=== PATIENT | male | born 1960 | race Caucasian/White ===

== ENCOUNTER 2022-08-03 23:04 | Observation (INO) | payer MEDICARE, BC ==
[2022-08-03 23:12] LABS: Glucose,Whole Blood 154 mg/dL (70-110)
[2022-08-03] MEDS ORDERED: SODIUM CHLORIDE 0.9% 1,000 ML IV STA (23:14)
[2022-08-03] MEDS ORDERED: ONDANSETRON 4 MG/2 ML VIAL IVP STA (23:14)
--- NOTE | 2022-08-03 23:18 | ED ---
Altered Mental Status HPI - General Chief Complaint: Altered Mental Status Stated Complaint: AMS Time Seen by Provider: 08/03/22 23:10 Source: EMS Mode of arrival: EMS Limitations: no limitations - History of Present Illness Initial Comments: 62-year-old male with past history of CVA and left-sided deficits to presents emergency department with "I just don't feel well". Family called EMS because they felt the patient wasn't acting himself. He was reporting to room spinning, nausea and diarrhea. He denies headache or visual changes. He does have some disrupted speech and forgetfulness however this is reported to be chronic. He does have foot drop on the left which is chronic. He takes Plavix daily and denies any missed doses. He denies any sick contacts with similar symptoms. He denies fevers, chills or cough. He denies any changes in his urination. History is somewhat abbreviated as the patient is a poor historian and family does not come to the hospital. - Related Data Home Medications Medication Instructions Recorded Confirmed Atorvastatin [Lipitor] 20 mg PO HS 08/04/22 08/04/22 Cholecalciferol [Vitamin D3 (25 50 mcg PO DAILY 08/04/22 08/04/22 Mcg = 1000 Iu)] Clopidogrel [Plavix] 75 mg PO DAILY 08/04/22 08/04/22 Cyclobenzaprine [Flexeril] 5 mg PO BID PRN 08/04/22 08/04/22 Metoprolol Tartrate [Lopressor] 25 mg PO BID 08/04/22 08/04/22 Morphine Sulfate Ir [MSIR] 30 mg PO TID PRN 08/04/22 08/04/22 Nitroglycerin Sl Tabs [Nitrostat] 0.4 mg SUBLINGUAL Q5M PRN 08/04/22 08/04/22 Tamsulosin [Flomax] 0.8 mg PO DAILY 08/04/22 08/04/22 amLODIPine [Norvasc] 10 mg PO DAILY 08/04/22 08/04/22 carBAMazepine 200 mg PO Q12H 08/04/22 08/04/22 Previous Rx's Medication Instructions Recorded Cyanocobalamin [Vitamin B-12] 1,000 mcg PO DAILY #14 tab 08/06/22 Allergies Allergy/AdvReac Type Severity Reaction Status Date / Time No Known Allergies Allergy Verified 08/04/22 12:04 Review of Systems ROS Statement: Those systems with pertinent positive or pertinent negative responses have been documented in the HPI. ROS Other: All systems not noted in ROS Statement are negative. Past Medical History Past Medical History: Chest Pain / Angina, CVA/TIA, Hyperlipidemia, Pneumonia, Prostate Disorder History of Any Multi-Drug Resistant Organisms: None Reported Past Surgical History: Cholecystectomy, Heart Catheterization Smoking Status: Current every day smoker Past Alcohol Use History: Rare Past Drug Use History: None Reported General Exam Limitations: no limitations General appearance: alert, in no apparent distress Head exam: Present: atraumatic, normocephalic, normal inspection Eye exam: Present: normal appearance, PERRL, EOMI. Absent: scleral icterus, conjunctival injection, periorbital swelling ENT exam: Present: normal exam, mucous membranes moist Neck exam: Present: normal inspection. Absent: tenderness, meningismus, lymphadenopathy Respiratory exam: Present: normal lung sounds bilaterally. Absent: respiratory distress, wheezes, rales, rhonchi, stridor Cardiovascular Exam: Present: regular rate, normal rhythm, normal heart sounds. Absent: systolic murmur, diastolic murmur, rubs, gallop, clicks GI/Abdominal exam: Present: soft, normal bowel sounds. Absent: distended, tenderness, guarding, rebound, rigid Extremities exam: Present: normal inspection, full ROM, normal capillary refill. Absent: tenderness, pedal edema, joint swelling, calf tenderness Back exam: Present: normal inspection Neurological exam: Present: alert, CN II-XII intact Psychiatric exam: Present: normal mood, flat affect Skin exam: Present: warm, dry, intact, normal color. Absent: rash Course Vital Signs 08/03/22 08/04/22 08/04/22 23:06 00:22 03:30 Temperature 98.3 F Pulse Rate 80 75 Respiratory 16 16 Rate Blood Pressure 108/82 100/83 108/75 O2 Sat by Pulse 95 95 Oximetry 08/04/22 08/04/22 05:31 06:46 Temperature 98.4 F Pulse Rate 74 72 Respiratory 16 16 Rate Blood Pressure 130/92 124/84 O2 Sat by Pulse 98 95 Oximetry Medical Decision Making - Medical Decision Making Was pt. sent in by a medical professional or institution (, PA, DIRECTOR FEDERAL, urgent care, hospital, or penitentiary...) When possible be specific @ -No Did you speak to anyone other than the patient for history (EMS, parent, family, police, friend...)? What history was obtained from this source @ -EMS Did you review nursing and triage notes (agree or disagree)? Why? @ -I reviewed and agree with nursing and triage notes Were old charts reviewed (outside hosp., previous admission, EMS record, old EKG, old radiological studies, urgent care reports/EKG's, penitentiary records)? Report findings @ - old charts were reviewed Differential Diagnosis (chest pain, altered mental status, abdominal pain women, abdominal pain men, vaginal bleeding, weakness, fever, dyspnea, syncope, headache, dizziness, GI bleed, back pain, seizure, CVA, palpatations, mental health, musculoskeletal)? @ sepsis, uti, pneumonia, SAH, SDH, CVA, electrolyte abnormality EKG interpreted by me (3pts min.). @ -As above X-rays interpreted by me (1pt min.). @ -yes CT interpreted by me (1pt min.). @ -yes U/S interpreted by me (1pt. min.). @ -None done What testing was considered but not performed or refused? (CT, X-rays, U/S, labs)? Why? @ -None What meds were considered but not given or refused? Why? @ -None Did you discuss the management of the patient with other professionals (professionals i.e. , PA, DIRECTOR FEDERAL, lab, RT, psych nurse, social work program coordinator, control clerk repairs, teacher, special weapons unit officer, case planner)? Give summary @ -Admitting physician Was smoking cessation discussed for >3mins.? @ -no Was critical care preformed (if so, how long)? @ -no Were there social determinants of health that impacted care today? How? (Homelessness, low income, unemployed, alcoholism, drug addiction, transportation, low edu. Level, literacy, decrease access to med. care, halfway, rehab)? @ -No Was there de-escalation of care discussed even if they declined (Discuss DNR or withdrawal of care, Hospice)? DNR status @ -No What co-morbidities impacted this encounter? (DM, HTN, Smoking, COPD, CAD, Ca ncer, CVA, ARF, Chemo, Hep., AIDS, mental health diagnosis, sleep apnea, morbid obesity)? @ -CVA Was patient admitted / discharged? Hospital course, mention meds given and route, prescriptions, significant lab abnormalities, going to OR and other pertinent info. @ -Upon arrival the patient is placed into room 9. A thorough history and phys ical exam was performed. Patient does score a 1 on the NIH scale due to mild aphasia. He does have equal psychiatric technician strength bilaterally. Is able to hold up both lower extremities for 5 seconds without drift. He is able to provide moderate history. Laboratory studies were conducted which demonstrated a sodium of 128. Potassium 2.9. Potassium is replaced. Patient also started on intravenous fluids. CT of his head is performed due to his strong history of CVA. Reports demonstrates postsurgical changes in the right frontal lobe without evidence for acute or subacute CVA. This is discussed with the patient. Mentation is stable upon saline emergency room. Did recommend admission for electrolyte abnormality for which the patient was agreeable. He is admitted to [facility]. He is currently awaiting a bed on the floor in stable condition Undiagnosed new problem with uncertain prognosis? @ -yes Drug Therapy requiring intensive monitoring for toxicity (Heparin, Nitro, Insulin, Cardizem)? @ -No Were any procedures done? @ -No Diagnosis/symptom? @ -acute encephalopathy, acute hyponatremia Acute, or Chronic, or Acute on Chronic? @ -acute Uncomplicated (without systemic symptoms) or Complicated (systemic symptoms)? @ -complicated Side effects of treatment? @ -no Exacerbation, Progression, or Severe Exacerbation? @ -no Poses a threat to life or bodily function? How? (Chest pain, [place], [place], pneumonia, PE, COPD, DKA, ARF, appy, cholecystitis, CVA, Diverticulitis, Homicidal, Suicidal, threat to staff... and all critical care pts) @ -no - Lab Data Result diagrams: 08/05/22 05:09 08/05/22 05:09 Lab Results 08/03/22 08/03/22 08/03/22 Range/Units 23:10 23:19 23:19 WBC 8.4 (3.8-10.6) k/uL RBC 4.61 (4.30-5.90) m/uL Hgb 14.7 (13.0-17.5) gm/dL Hct 41.7 (39.0-53.0) % MCV 90.5 (80.0-100.0) fL MCH 31.8 (25.0-35.0) pg MCHC 35.1 (31.0-37.0) g/dL RDW 11.6 (11.5-15.5) % Plt Count 205 (150-450) k/uL MPV 7.3 Neutrophils % 57 % Lymphocytes % 35 % Monocytes % 5 % Eosinophils % 2 % Basophils % 1 % Neutrophils # 4.8 (1.3-7.7) k/uL Lymphocytes # 2.9 (1.0-4.8) k/uL Monocytes # 0.4 (0-1.0) k/uL Eosinophils # 0.1 (0-0.7) k/uL Basophils # 0.1 (0-0.2) k/uL PT 10.9 (9.0-12.0) sec INR 1.0 (<1.2) Sodium (137-145) mmol/L Potassium (3.5-5.1) mmol/L Chloride (98-107) mmol/L Carbon Dioxide (22-30) mmol/L Anion Gap mmol/L BUN (9-20) mg/dL Creatinine (0.66-1.25) mg/dL Est GFR (CKD-EPI)AfAm (>60 ml/min/1.73 sqM) Est GFR (CKD-EPI)NonAf (>60 ml/min/1.73 sqM) Glucose (74-99) mg/dL POC Glucose (mg/dL) 154 H (70-110) mg/dL POC Glu Transportation Clerk ID Myriam Fraire Lactic Ac Sepsis Rflx Plasma Lactic Acid Cm (0.7-2.0) mmol/L Calcium (8.4-10.2) mg/dL Total Bilirubin (0.2-1.3) mg/dL AST (17-59) U/L ALT (4-49) U/L Alkaline Phosphatase (38-126) U/L Troponin I (0.000-0.034) ng/mL Total Protein (6.3-8.2) g/dL Albumin (3.5-5.0) g/dL Urine Color Urine Appearance (Clear) Urine pH (5.0-8.0) Ur Specific [place] (1.001-1.035) Urine Protein (Negative) Urine Glucose (UA) (Negative) Urine Ketones (Negative) Urine Blood (Negative) Urine Nitrite (Negative) Urine Bilirubin (Negative) Urine Urobilinogen (<2.0) mg/dL Ur Leukocyte Esterase (Negative) 08/03/22 08/03/22 08/03/22 Range/Units 23:19 23:19 23:19 WBC (3.8-10.6) k/uL RBC (4.30-5.90) m/uL Hgb (13.0-17.5) gm/dL Hct (39.0-53.0) % MCV (80.0-100.0) fL MCH (25.0-35.0) pg MCHC (31.0-37.0) g/dL RDW (11.5-15.5) % Plt Count (150-450) k/uL MPV Neutrophils % % Lymphocytes % % Monocytes % % Eosinophils % % Basophils % % Neutrophils # (1.3-7.7) k/uL Lymphocytes # (1.0-4.8) k/uL Monocytes # (0-1.0) k/uL Eosinophils # (0-0.7) k/uL Basophils # (0-0.2) k/uL PT (9.0-12.0) sec INR (<1.2) Sodium 128 L (137-145) mmol/L Potassium 2.9 L (3.5-5.1) mmol/L Chloride 90 L (98-107) mmol/L Carbon Dioxide 30 (22-30) mmol/L Anion Gap 8 mmol/L BUN 3 L (9-20) mg/dL Creatinine 0.72 (0.66-1.25) mg/dL Est GFR (CKD-EPI)AfAm >90 (>60 ml/min/1.73 sqM) Est GFR (CKD-EPI)NonAf >90 (>60 ml/min/1.73 sqM) Glucose 136 H (74-99) mg/dL POC Glucose (mg/dL) (70-110) mg/dL POC Glu Transportation Clerk ID Lactic Ac Sepsis Rflx Plasma Lactic Acid Cm 2.7 H* (0.7-2.0) mmol/L Calcium 9.6 (8.4-10.2) mg/dL Total Bilirubin 0.6 (0.2-1.3) mg/dL AST 29 (17-59) U/L ALT 34 (4-49) U/L Alkaline Phosphatase 97 (38-126) U/L Troponin I <0.012 (0.000-0.034) ng/mL Total Protein 7.4 (6.3-8.2) g/dL Albumin 4.8 (3.5-5.0) g/dL Urine Color Urine Appearance (Clear) Urine pH (5.0-8.0) Ur Specific [place] (1.001-1.035) Urine Protein (Negative) Urine Glucose (UA) (Negative) Urine Ketones (Negative) Urine Blood (Negative) Urine Nitrite (Negative) Urine Bilirubin (Negative) Urine Urobilinogen (<2.0) mg/dL Ur Leukocyte Esterase (Negative) 08/03/22 08/04/22 Range/Units 23:48 02:05 WBC (3.8-10.6) k/uL RBC (4.30-5.90) m/uL Hgb (13.0-17.5) gm/dL Hct (39.0-53.0) % MCV (80.0-100.0) fL MCH (25.0-35.0) pg MCHC (31.0-37.0) g/dL RDW (11.5-15.5) % Plt Count (150-450) k/uL MPV Neutrophils % % Lymphocytes % % Monocytes % % Eosinophils % % Basophils % % Neutrophils # (1.3-7.7) k/uL Lymphocytes # (1.0-4.8) k/uL Monocytes # (0-1.0) k/uL Eosinophils # (0-0.7) k/uL Basophils # (0-0.2) k/uL PT (9.0-12.0) sec INR (<1.2) Sodium (137-145) mmol/L Potassium (3.5-5.1) mmol/L Chloride (98-107) mmol/L Carbon Dioxide (22-30) mmol/L Anion Gap mmol/L BUN (9-20) mg/dL Creatinine (0.66-1.25) mg/dL Est GFR (CKD-EPI)AfAm (>60 ml/min/1.73 sqM) Est GFR (CKD-EPI)NonAf (>60 ml/min/1.73 sqM) Glucose (74-99) mg/dL POC Glucose (mg/dL) (70-110) mg/dL POC Glu Transportation Clerk ID Lactic Ac Sepsis Rflx Y Plasma Lactic Acid Cm (0.7-2.0) mmol/L Calcium (8.4-10.2) mg/dL Total Bilirubin (0.2-1.3) mg/dL AST (17-59) U/L ALT (4-49) U/L Alkaline Phosphatase (38-126) U/L Troponin I (0.000-0.034) ng/mL Total Protein (6.3-8.2) g/dL Albumin (3.5-5.0) g/dL Urine Color Yellow Urine Appearance Clear (Clear) Urine pH 7.5 (5.0-8.0) Ur Specific [place] 1.005 (1.001-1.035) Urine Protein Negative (Negative) Urine Glucose (UA) Negative (Negative) Urine Ketones Negative (Negative) Urine Blood Negative (Negative) Urine Nitrite Negative (Negative) Urine Bilirubin Negative (Negative) Urine Urobilinogen <2.0 (<2.0) mg/dL Ur Leukocyte Esterase Negative (Negative) - EKG Data EKG Comments: EKG demonstrates sinus rhythm with a rate of 76.. Vital to swell. QRS 104. QTC of 394. Inverted T wave in V3. No acute ST segment elevations concerning for infarction. Disposition Clinical Impression: Acute encephalopathy, Dehydration, Hyponatremia, Hx of arterial ischemic stroke, Hypokalemia Disposition: ADMITTED IP TO THIS HOSP Condition: Fair Is patient prescribed a controlled substance at d/c from ED?: No Time of Disposition: 02:59 Decision to Admit Reason: Admit from EC Decision Date: 08/04/22 Decision Time: 02:59
[2022-08-03 23:31] LABS: Basophils # (A) 0.1 k/uL (0-0.2); Basophils % (A) 1 %; Eosinophils # (A) 0.1 k/uL (0-0.7); Eosinophils % (A) 2 %; HCT 41.7 % (39.0-53.0); HGB 14.7 gm/dL (13.0-17.5); Lymphocytes # (A) 2.9 k/uL (1.0-4.8); Lymphocytes % (A) 35 %; MCH 31.8 pg (25.0-35.0); MCHC 35.1 g/dL (31.0-37.0); MCV 90.5 fL (80.0-100.0); Mean Platelet Volume 7.3; Monocytes # (A) 0.4 k/uL (0-1.0); Monocytes % (A) 5 %; Neutrophils # (A) 4.8 k/uL (1.3-7.7); Neutrophils % (A) 57 %; Platelet Count 205 k/uL (150-450); RBC 4.61 m/uL (4.30-5.90); RDW 11.6 % (11.5-15.5); WBC 8.4 k/uL (3.8-10.6)
--- NOTE | 2022-08-03 23:40 | XR ---
EXAMINATION TYPE: XR chest 2V DATE OF EXAM: 08/03/2022 11:31 PM COMPARISON: None TECHNIQUE: XR chest 2V Frontal and lateral views of the chest. CLINICAL INDICATION:Male, 62 years old with history of dizzy; FINDINGS: Lungs/Pleura: There is no evidence of pleural effusion, focal consolidation, or pneumothorax. Pulmonary vascularity: Unremarkable. Heart/mediastinum: Cardiomediastinal silhouette is unremarkable. A loop recorder projects over the le ft thorax over the heart. Musculoskeletal: No acute osseous pathology. IMPRESSION: No acute cardiopulmonary disease/process.
[2022-08-03 23:41] LABS: ALT 34 U/L (4-49); AST 29 U/L (17-59); African American GFR (CKD) >90 (>60 ml/min/1.73 sqM); Albumin 4.8 g/dL (3.5-5.0); Alkaline Phosphatase 97 U/L (38-126); Anion Gap 8 mmol/L; Blood Urea Nitrogen 3 mg/dL (9-20); Calcium 9.6 mg/dL (8.4-10.2); Carbon Dioxide 30 mmol/L (22-30); Chloride 90 mmol/L (98-107); Glucose 136 mg/dL (74-99); Non-African American GFR(CKD) >90 (>60 ml/min/1.73 sqM); Potassium 2.9 mmol/L (3.5-5.1); Sodium 128 mmol/L (137-145); Total Bilirubin 0.6 mg/dL (0.2-1.3); Total Protein 7.4 g/dL (6.3-8.2)
[2022-08-03 23:44] LABS: Prothrombin Time 10.9 sec (9.0-12.0)
--- NOTE | 2022-08-03 23:51 | CT ---
EXAMINATION TYPE: CT brain wo con CT DLP: 1154.6 mGycm, Automated exposure control for dose reduction was used. DATE OF EXAM: 08/03/2022 11:38 PM COMPARISON: 12/21/2010 MRI. CLINICAL INDICATION:Male, 62 years old with history of headache, dizzy, hx brain ca, hx cva, dizzines s TECHNIQUE: Brain: Axial CT images of the brain were obtained with coronal and sagittal reformats created and rev iewed. Contrast used: None. Oral contrast used: None. FINDINGS: Brain: Extra-axial spaces: No abnormal extra-axial fluid collections. Ventricular system: Within normal limits Cerebral parenchyma: Post surgical changes the right frontal lobe and skull. Focal malacia changes. T here remains encephalomalacia and white matter changes in the right frontal lobe. There is loss of gr ay-white junction in the area of surgical resection. Cystic structure as seen on prior MRI remains wi th similar size compared to 2011. No acute intraparenchymal hemorrhage or mass effect. Cerebellum: Unremarkable. Mass effect: No evidence of midline shift. Intracranial vasculature: Atherosclerotic calcifications of the intracranial vessels. Soft tissues: Normal. Calvarium/osseous structures: No depressed skull fracture. Craniotomy changes to the skull in the fro ntal aspect on the right. Paranasal sinuses and mastoid air cells: Mild scattered paranasal sinus disease. Visualized orbits: Orbital contents are intact. IMPRESSION: Postsurgical changes of the right frontal lobe without evidence for acute/subacute CVA. Evaluation fo r recurrence is limited without contrast and with CT technique.
[2022-08-04 02:30] LABS: Appearance,Urine Clear (Clear); Bilirubin,Urine Negative (Negative); Blood,Urine Negative (Negative); Color,Urine Yellow; Glucose,Urine (UA) Negative (Negative); Ketones,Urine Negative (Negative); Leukocyte Esterase,Urine Negative (Negative); Nitrite,Urine Negative (Negative); PH, Urine 7.5 (5.0-8.0); Protein,Urine Negative (Negative); Specific Gravity,Urine 1.005 (1.001-1.035); Urobilinogen,Urine <2.0 mg/dL (<2.0)
[2022-08-04] MEDS ORDERED: NALOXONE 0.4 MG/ML 1 ML VIAL IV PRN (02:59)
[2022-08-04] MEDS ORDERED: POTASSIUM CHLORIDE ER 20 MEQ TAB.ER PO STA (03:18)
[2022-08-04] MEDS: SODIUM CHLORIDE 0.9% 1,000 ML IV SCH ×3 (03:19→17:45)
[2022-08-04] MEDS ORDERED: POTASSIUM CHLORIDE 20 MEQ in WATER FOR INJECTION 1 100ML.BAG IVPB ONE (03:30)
[2022-08-04] MEDS ORDERED: NITROGLYCERIN SL TABS 0.4 MG TAB SUBLINGUAL PRN (13:54)
[2022-08-04] MEDS ORDERED: CYCLOBENZAPRINE 5 MG TAB PO PRN (13:54)
[2022-08-04] MEDS: CLOPIDOGREL 75 MG TAB PO SCH (14:43)
[2022-08-04] MEDS: NICOTINE 14MG/24HR PATCH TRANSDERM SCH (14:43)
[2022-08-04] MEDS: carBAMazepine 200 MG TAB PO SCH ×2 (14:43→19:54)
[2022-08-04 15:10] LABS: African American GFR (CKD) >90 (>60 ml/min/1.73 sqM); Anion Gap 9 mmol/L; Blood Urea Nitrogen 4 mg/dL (9-20); Calcium 9.4 mg/dL (8.4-10.2); Carbon Dioxide 25 mmol/L (22-30); Chloride 99 mmol/L (98-107); Glucose 117 mg/dL (74-99); Non-African American GFR(CKD) >90 (>60 ml/min/1.73 sqM); Potassium 3.8 mmol/L (3.5-5.1); Sodium 133 mmol/L (137-145)
--- NOTE | 2022-08-04 17:39 | P.HPIM ---
History of Present Illness H&P Date: 08/04/22 Chief Complaint: Altered mental status 62-year-old male with past history of CVA and left-sided deficits to presents emergency department with "I just don't feel well". Family called EMS because they felt the patient wasn't acting himself. He was reporting to room spinning, nausea and diarrhea. He denies headache or visual changes. He does have some disrupted speech and forgetfulness however this is reported to be chronic. He does have foot drop on the left which is chronic. He takes Plavix daily and denies any missed doses. He denies any sick contacts with similar symptoms. He denies fevers, chills or cough. He denies any changes in his urination. History is somewhat abbreviated as the patient is a poor historian and family does not come to the hospital. Evaluation in ED revealed score a 1 on the NIH scale due to mild a facia. He does have equal senior linux administrator strength bilaterally. Is able to hold up both lower extremities for 5 seconds without drift. He is able to provide moderate history. Laboratory studies were conducted which demonstrated a sodium of 128. Potassium 2.9. Potassium is replaced. Patient also started on intravenous fluids. CT of his head is performed due to his strong history of CVA. Reports demonstrates postsurgical changes in the right frontal lobe without evidence for acute or subacute CVA. Mentation is stable upon saline administration emergency room. Patient is admitted to address electrolyte imbalance Review of Systems REVIEW OF SYSTEMS: CONSTITUTIONAL: No fever, no malaise, no fatigue. HEENT: No recent visual problems or hearing problems. Denied any sore throat. CARDIOVASCULAR: No chest pain, orthopnea, PND, no palpitations, no syncope. PULMONARY: No shortness of breath, no cough, no hemoptysis. GASTROINTESTINAL: No diarrhea, no nausea, no vomiting, no abdominal pain. NEUROLOGICAL: No headaches, no weakness, no numbness. HEMATOLOGICAL: Denies any bleeding or petechiae. GENITOURINARY: Denies any burning micturition, frequency, or urgency. MUSCULOSKELETAL/RHEUMATOLOGICAL: Denies any joint pain, swelling, or any muscle pain. ENDOCRINE: Denies any polyuria or polydipsia. The rest of the 14-point review of systems is negative. Past Medical History Past Medical History: Chest Pain / Angina, CVA/TIA, Hyperlipidemia, Pneumonia, Prostate Disorder History of Any Multi-Drug Resistant Organisms: None Reported Past Surgical History: Cholecystectomy, Heart Catheterization Additional Past Surgical History / Comment(s): [employer] Heart Monitor Smoking Status: Current every day smoker Past Alcohol Use History: Rare Past Drug Use History: None Reported Medications and Allergies Home Medications Medication Instructions Recorded Confirmed Type Atorvastatin [Lipitor] 20 mg PO HS 08/04/22 08/04/22 History Cholecalciferol [Vitamin D3 (25 50 mcg PO DAILY 08/04/22 08/04/22 History Mcg = 1000 Iu)] Clopidogrel [Plavix] 75 mg PO DAILY 08/04/22 08/04/22 History Cyclobenzaprine [Flexeril] 5 mg PO BID PRN 08/04/22 08/04/22 History Metoprolol Tartrate [Lopressor] 25 mg PO BID 08/04/22 08/04/22 History Morphine Sulfate Ir [MSIR] 30 mg PO TID PRN 08/04/22 08/04/22 History Nitroglycerin Sl Tabs [Nitrostat] 0.4 mg SUBLINGUAL Q5M PRN 08/04/22 08/04/22 History Tamsulosin [Flomax] 0.8 mg PO DAILY 08/04/22 08/04/22 History amLODIPine [Norvasc] 10 mg PO DAILY 08/04/22 08/04/22 History carBAMazepine 200 mg PO Q12H 08/04/22 08/04/22 History hydroCHLOROthiazide [Hydrodiuril] 25 mg PO DAILY 08/04/22 08/04/22 History Allergies Allergy/AdvReac Type Severity Reaction Status Date / Time No Known Allergies Allergy Verified 08/04/22 12:04 Physical Exam Vitals: Vital Signs Temp Pulse Pulse Resp BP BP Pulse Ox 08/04/22 08:00 97.7 F 72 15 106/79 95 08/04/22 06:46 72 16 124/84 95 08/04/22 05:31 98.4 F 74 16 130/92 98 08/04/22 03:30 108/75 08/04/22 00:22 75 16 100/83 95 08/03/22 23:06 98.3 F 80 16 108/82 95 Intake and Output 08/03/22 08/04/22 08/04/22 22:59 06:59 14:59 Intake Total 236 Balance 236 Intake: Oral 236 Other: Voiding Method Urinal Weight 77.111 kg PHYSICAL EXAMINATION: GENERAL: The patient is alert and oriented x3, not in any acute distress. Well developed, well nourished. HEENT: Pupils are round and equally reacting to light. EOMI. No scleral icterus. No conjunctival pallor. Normocephalic, atraumatic. No pharyngeal erythema. No thyromegaly. CARDIOVASCULAR: S1 and S2 present. No murmurs, rubs, or gallops. PULMONARY: Chest is clear to auscultation, no wheezing or crackles. ABDOMEN: Soft, nontender, nondistended, normoactive bowel sounds. No palpable organomegaly. MUSCULOSKELETAL: No joint swelling or deformity. EXTREMITIES: No cyanosis, clubbing, or pedal edema. NEUROLOGICAL: Gross neurological examination did not reveal any focal deficits. SKIN: No rashes. Results CBC & Chem 7: 08/03/22 23:19 08/04/22 14:37 Labs: Abnormal Lab Results - Last 24 Hours (Table) 08/03/22 08/03/22 08/03/22 Range/Units 23:10 23:19 23:19 Sodium 128 L (137-145) mmol/L Potassium 2.9 L (3.5-5.1) mmol/L Chloride 90 L (98-107) mmol/L BUN 3 L (9-20) mg/dL Glucose 136 H (74-99) mg/dL POC Glucose (mg/dL) 154 H (70-110) mg/dL Plasma Lactic Acid Cm 2.7 H* (0.7-2.0) mmol/L Assessment and Plan Assessment: 1. Altered mental status; likely toxic metabolic encephalopathy related to electrolyte imbalance and dehydration 2. Electrolyte imbalance; hyponatremia/hypokalemia; initial sodium was found to be 128 with potassium of 2.90; patient has received fluid bolus in ED and remains on normal saline at a rate of 135 mL an hour; we will order stat repeat electrolytes and make recommendations accordingly 3. Lactic acidosis; lactic acid was found to be evaluated upon initial evaluation at 2.7 -- no signs of infection; likely related to dehydration --Patient received IV fluid bolus in ED; repeat lactic acid level is down to 1.7 4. Hypertension; blood pressure remained soft; patient takes amlodipine 10 mg daily, hydrochlorothiazide 25 mg daily and metoprolol 25 mg twice a day; we will hold off on antihypertensive therapy to blood pressure improves 5. Hyperlipidemia; Lipitor 40 mg 2 daily at bedtime 6. BPH; continue with home dose of Flomax DVT prophylaxis; SCDs CODE STATUS; full code
[2022-08-04] MEDS: ATORVASTATIN 20 MG TAB PO SCH (19:54)
[2022-08-05] MEDS: SODIUM CHLORIDE 0.9% 1,000 ML IV SCH ×4 (02:23→22:11)
[2022-08-05] MEDS: CHOLECALCIFEROL 25 MCG (1000 IU) TABLET PO SCH (08:02)
[2022-08-05] MEDS: carBAMazepine 200 MG TAB PO SCH ×2 (08:02→21:57)
[2022-08-05] MEDS: CLOPIDOGREL 75 MG TAB PO SCH (08:02)
[2022-08-05] MEDS: MORPHINE SULFATE IR 15 MG TABLET PO PRN ×2 (08:02→17:59)
[2022-08-05] MEDS: TAMSULOSIN 0.4 MG CAP.ER.24H PO SCH (08:02)
[2022-08-05] MEDS: NICOTINE 14MG/24HR PATCH TRANSDERM SCH (08:03)
[2022-08-05 08:51] LABS: Basophils # (A) 0.05 X 10*3/uL (0.00-0.10); Basophils % (A) 0.5 %; Eosinophils # (A) 0.05 X 10*3/uL (0.04-0.35); Eosinophils % (A) 0.5 %; HCT 41.2 % (39.6-50.0); HGB 13.7 g/dL (13.0-17.0); Immature Grans, Automated 0.2 %; Lymphocytes # (A) 2.48 X 10*3/uL (0.90-5.00); Lymphocytes % (A) 26.5 %; MCH 30.6 pg (27.0-32.0); MCHC 33.3 g/dL (32.0-37.0); Mean Platelet Volume 9.7 fL (9.5-12.2); Monocytes # (A) 0.67 X 10*3/uL (0.20-1.00); Monocytes % (A) 7.2 %; NRBC Per 100 WBC 0 /100 WBCS (0.0-0.0); Neutrophils # (A) 6.08 X 10*3/uL (1.80-7.70); Neutrophils % (A) 65.1 %; Platelet Count 177 X 10*3/uL (140-440); RBC 4.48 X 10*6/uL (4.40-5.60); RDW 11.9 % (11.5-14.5); WBC 9.35 X 10*3/uL (4.50-10.00)
[2022-08-05 09:28] LABS: African American GFR (CKD) 124.9 (60.0-200.0); Anion Gap 10.2 mmol/L (10.00-18.00); BUN/Creat Ratio 6.33 Ratio (12.00-20.00); Blood Urea Nitrogen 3.8 mg/dL (9.0-27.0); Calcium 9.5 mg/dL (8.7-10.3); Carbon Dioxide 24.8 mmol/L (20.0-27.5); Non-African American GFR(CKD) 107.8 (60.0-200.0); Potassium 3.7 mmol/L (3.5-5.5)
--- NOTE | 2022-08-05 17:21 | P.PN ---
Subjective Progress Note Date: 08/05/22 62-year-old male with past history of CVA and left-sided deficits to presents emergency department with "I just don't feel well". Family called EMS because they felt the patient wasn't acting himself. He was reporting to room spinning, nausea and diarrhea. He denies headache or visual changes. He does have some disrupted speech and forgetfulness however this is reported to be chronic. He does have foot drop on the left which is chronic. He takes Plavix daily and denies any missed doses. He denies any sick contacts with similar symptoms. He denies fevers, chills or cough. He denies any changes in his urination. History is somewhat abbreviated as the patient is a poor historian and family does not come to the hospital. Evaluation in ED revealed score a 1 on the NIH scale due to mild a facia. He does have equal shop manager strength bilaterally. Is able to hold up both lower extremities for 5 seconds without drift. He is able to provide moderate history. Laboratory studies were conducted which demonstrated a sodium of 128. Potassium 2.9. Potassium is replaced. Patient also started on intravenous fluids. CT of his head is performed due to his strong history of CVA. Reports demonstrates postsurgical changes in the right frontal lobe without evidence for acute or subacute CVA. Mentation is stable upon saline administration emergency room. Patient is admitted to address electrolyte imbalance 08/05/2022 Patient evaluated today at bedside. Continues to have symptoms of left sided facial droop. He does report feeling like he is having a hard time finding words this is new. He has residual left sided weakness from prior stroke. He does report improvement in dizziness and lightheadedness. Requesting neurology evaluation. PT/OT. Review of Systems Constitutional: Denied any fatigue denied any fever. Cardio vascular: denied any chest pain, palpitations Gastrointestinal: denied any nausea, vomiting, diarrhea Pulmonary: Denied any shortness of breath cough Neurologic Reports weakness and hard time finding words. All inpatient medications were reviewed and appropriate changes in these medications as dictated in the interval history and assessment and plan. PHYSICAL EXAMINATION: GENERAL: The patient is alert and oriented x3, not in any acute distress. Well developed, well nourished. HEENT: Pupils are round and equally reacting to light. EOMI. No scleral icterus. No conjunctival pallor. Normocephalic, atraumatic. No pharyngeal erythema. No thyromegaly. CARDIOVASCULAR: S1 and S2 present. No murmurs, rubs, or gallops. PULMONARY: Chest is clear to auscultation, no wheezing or crackles. ABDOMEN: Soft, nontender, nondistended, normoactive bowel sounds. No palpable organomegaly. MUSCULOSKELETAL: No joint swelling or deformity. EXTREMITIES: No cyanosis, clubbing, or pedal edema. Dragging his left foot while ambulating. NEUROLOGICAL: Left facial droop, aphasia SKIN: No rashes. Assessment and Plan Assessment Altered mental status; likely toxic metabolic encephalopathy related to electrolyte imbalance and dehydration Hyponatremia has resolved Lactic acidosis from dehydration resolved Hypertension medications on hold currently normotensive Hyperlipidemia BPH History of stroke with left sided deficits BPH History of brain tumor and surgery in 2004 Nicotine dependence 1/2 pack per day smoker GI prophylaxis DVT prophylaxis Full Code Plan Continue current medications PT/OT/Speech therapy consultation Neurology consultation for further recommendations D/C in the next 24 hours The impression and plan of care has been dictated by Gabriela Dinh, Nurse Practitioner as directed. Dr. Nicholas MD I have performed a history and physical examination and medical decision making of this patient, discussed the same with the dictator, and agree with the dictators assessment and plan as written, documented as a scribe. Based on total visit time, I have performed more than 50% of this visit. Objective - Vital Signs Vital signs: Vital Signs Temp 98.2 F 08/05/22 15:00 Pulse 84 08/05/22 15:00 Resp 18 08/05/22 15:00 BP 131/87 08/05/22 15:00 Pulse Ox 97 08/05/22 15:00 FiO2 Intake & Output 08/04/22 08/05/22 08/05/22 18:59 06:59 18:59 Intake Total 236 236 Output Total 400 600 Balance -164 -600 236 Weight 77.111 kg Intake: Oral 236 236 Output: Urine 400 600 Other: Voiding Method Urinal Urinal # Voids 1 1 # Bowel Movements 1 - Labs CBC & Chem 7: 08/05/22 05:09 08/05/22 05:09 Labs: Abnormal Lab Results - Last 24 Hours (Table) 08/05/22 Range/Units 05:09 BUN 3.8 L (9.0-27.0) mg/dL BUN/Creatinine Ratio 6.33 L (12.00-20.00) Ratio Assessment and Plan Time with Patient: Less than 30
--- NOTE | 2022-08-05 20:51 | US ---
EXAMINATION TYPE: US carotid duplex BILAT DATE OF EXAM: 08/05/2022 COMPARISON: NONE CLINICAL HISTORY: Stroke vs TIA. Stroke vs tia TECHNIQUE: Carotid duplex ultrasound examination. Indirect Doppler criteria was utilized. FINDINGS: EXAM MEASUREMENTS: RIGHT: Peak Systolic Velocity (PSV) cm/sec ----- Right CCA: 40.6 ----- Right ICA: 54.8 ----- Right ECA: 75.8 ICA/CCA ratio: 1.4 RIGHT: End Diastole cm/sec ----- Right CCA: 19.7 ----- Right ICA: 15.3 ----- Right ECA: 22.5 LEFT: Peak Systolic Velocity (PSV) cm/sec ----- Left CCA: 61.4 ----- Left ICA: 102.3 ----- Left ECA: 71.3 ICA/CCA ratio: 1.7 LEFT: End Diastole cm/sec ----- Left CCA: 24.1 ----- Left ICA: 53.0 ----- Left ECA: 26.3 VERTEBRALS (direction of flow): Right Vertebral: Antegrade Left Vertebral: Antegrade Rhythm: Normal EXCHANGE CLERK NOTES: Mild amount of plaque visualized in bilateral bulbs IMPRESSION: Less than 50% stenosis of bilateral carotid bifurcations. Criteria for Assigning % of Stenosis / Diameter reduction (Estimation based on the indirect measurements of the internal carotid artery velocities (ICA PSV). 1. Normal (no stenosis)=ICA PSV < 125 cm/s: ratio < 2.0: ICA EDV<40 cm/s. 2. Less than 50% stenosis=ICA PSV < 125 cm/s: ratio < 2.0: ICA EDV<40 cm/s. 3. 50 to 69% stenosis=ICA PSV of 125 to 230 cm/s: ration 2.0 ? 4.0: ICA EDV 40-100 cm/s. 4. Greater than 70% stenosis to near occlusion= ICA PSV > 230 cm/s: ratio > 4.0: ICA EDV > 100 cm/s. 5. Near occlusion= ICA PSV velocities may be low or undetectable: variable ratio and ICA EDV. 6. Total occlusion=unable to detect flow.
[2022-08-05] MEDS: ATORVASTATIN 20 MG TAB PO SCH (21:57)
[2022-08-06 03:29] VITALS: RESP 18
--- NOTE | 2022-08-06 08:51 | P.CNNES ---
History of Present Illness Consult date: 08/05/22 Requesting physician: Gabriela Dinh Reason for Consult: vertigo, hx of cva History of Present Illness: Patient is a 62-year-old ambidextrous male with history of brain tumor, also has history of CVA came to the hospital by ambulance on 08/03/2022 at 11:04 PM because for the past 3 days he was feeling he was having "signs of stroke". His left side of the face was droopy and his left side of the body inc luding face arm and leg was feeling numb. He also has some dizziness and he could not stand up. He denied any obvious vertigo. His called the ambulance. Patient states that his symptoms have improved, but not completely resolved back to baseline yet. He admits to having significant urgency, leaking of urine all the time. As per EMS flow sheet, when they arrived, patient was sitting at the edge of the bed and his was present. Patient was conscious, alert and breathing normally. Patient was alert and oriented 4 and able to answer all questions appropriately. It was mentioned that patient has history of a CVA with long- term deficits to the left side. He has some left facial droop, abnormal gait due to the left leg deficit, slurred speech and memory issues. [place] str jumana scale performed and per patient and , states that there are no new acute changes from his long-term deficits from his previous stroke. EKG showed sinus rhythm.patient vitals at the scene was blood pressure 105/72, pulse rate 80, respirations 16, saturation 97% and blood sugar 155. Patient's blood test shows normal CBC, INR. Sodium was 128 potassium 2.9, normal renal and hepatic panel. Lactate was elevated 2.7. Troponin negative. UA negative. CT head revealed postsurgical changes of the right frontal lobe without evidence for acute/subacute CVA. Evaluation for recurrence is limited without contrast and with CT technique. I personally reviewed CT head, and there is evidence of old encephalomalacia left frontal region with cystic encephalomalacia in the deep right frontal subcortical region related to previous craniotomy/brain tumor/CVA. No acute process. No changes compared to MRI from 12/21/2010. Slight ex vacuo dilation of the frontal horn of the right lateral ventricle. Chest x-ray was normal, EKG showed sinus rhythm with first-degree AV block. Patient states he has history of a brain tumor diagnosed in 2003. He states that he got on a trial medication and he has been in remission since then. He has history of seizure when he was diagnosed with brain tumor, and started on carbamazepine. Patient states that he has not had any seizures since then. He subsequently had a stroke in 2015, which affected his left side of the body. Patient has smoked 2 packs per day for 40 years. He is trying to quit, and has been smoking 10 cigarettes per day since his stroke. He denies diabetes, does admit to having hypertension. Denies any alcohol or drug use. Patient's home medications include Flomax, metoprolol 25 mg twice a day, hydrochlorothiazide 25 mg, Plavix 75 mg, vitamin D, amlodipine 10 mg, morphine sulfate 30 mg 3 times a day when necessary, Flexeril, Tegretol 200 mg every 12 hours and Lipitor 20 mg. Patient walks with a walker since his stroke. He lives with his and his son. He does have a loop recorder. Patient believes that he is not back to baseline as yet. Review of Systems Constitutional: Denies chills, Denies fever Eyes: denies blurred vision, denies pain Ears: deny: decreased hearing, ear discharge, earache Ears, nose, mouth and throat: Reports headache, Denies sore throat Cardiovascular: Reports shortness of breath, Denies chest pain Respiratory: Denies cough, Denies excessive sputum Gastrointestinal: Reports nausea, Denies abdominal pain, Denies diarrhea, Denies vomiting Genitourinary: Reports incontinence, Reports urinary frequency Musculoskeletal: Denies myalgias Integumentary: Denies pruritus, Denies rash Neurological: Reports as per HPI Psychiatric: Reports anxiety, Denies depression Endocrine: Reports fatigue, Denies weight change Hematologic/Lymphatic: Denies easy bruising Past Medical History Past Medical History: Chest Pain / Angina, CVA/TIA, Hyperlipidemia, Pneumonia, Prostate Disorder Additional Past Medical History / Comment(s): Brain tumor and brain surgery 2004, CVA 2014 with residual left side weakness, loop recorder for tachycardia History of Any Multi-Drug Resistant Organisms: None Reported Past Surgical History: Cholecystectomy, Heart Catheterization Additional Past Surgical History / Comment(s): [employer] Heart Monitor Past Anesthesia/Blood Transfusion Reactions: No Reported Reaction Smoking Status: Current every day smoker Past Alcohol Use History: Rare Past Drug Use History: None Reported Medications and Allergies Home Medications Medication Instructions Recorded Confirmed Type Atorvastatin [Lipitor] 20 mg PO HS 08/04/22 08/04/22 History Cholecalciferol [Vitamin D3 (25 50 mcg PO DAILY 08/04/22 08/04/22 History Mcg = 1000 Iu)] Clopidogrel [Plavix] 75 mg PO DAILY 08/04/22 08/04/22 History Cyclobenzaprine [Flexeril] 5 mg PO BID PRN 08/04/22 08/04/22 History Metoprolol Tartrate [Lopressor] 25 mg PO BID 08/04/22 08/04/22 History Morphine Sulfate Ir [MSIR] 30 mg PO TID PRN 08/04/22 08/04/22 History Nitroglycerin Sl Tabs [Nitrostat] 0.4 mg SUBLINGUAL Q5M PRN 08/04/22 08/04/22 History Tamsulosin [Flomax] 0.8 mg PO DAILY 08/04/22 08/04/22 History amLODIPine [Norvasc] 10 mg PO DAILY 08/04/22 08/04/22 History carBAMazepine 200 mg PO Q12H 08/04/22 08/04/22 History hydroCHLOROthiazide [Hydrodiuril] 25 mg PO DAILY 08/04/22 08/04/22 History Allergies Allergy/AdvReac Type Severity Reaction Status Date / Time No Known Allergies Allergy Verified 08/04/22 12:04 Physical Examination - Vital Signs Vital Signs: Vital Signs Temp Pulse Resp BP Pulse Ox 08/05/22 15:00 98.2 F 84 18 131/87 97 08/05/22 07:00 98.3 F 85 18 138/87 94 L 08/05/22 02:18 98.0 F 81 17 117/81 93 L 08/04/22 19:47 98.2 F 92 18 130/86 96 Intake and Output 08/05/22 08/05/22 08/05/22 06:59 14:59 22:59 Intake Total 236 Balance 236 Intake: Oral 236 Other: Voiding Method Urinal # Voids 1 1 # Bowel Movements 1 Patient is a late middle aged male, in no acute distress. Patient is alert awake oriented to time place and person. He knows it is August 05 and the year is 2022. He knows he is in the hospital in [facility] and name of the current president. Speech and language functions are normal. Patient has slight hesitancy and slight expressive difficulty from his previous stroke/tumor. Patient can name and repeat very well. He was able to name objects like knuckles, earlobe, button, button hole etc. There is no dysarthria. Attention, concentration and fund of knowledge is adequate. Detail cognitive function testing deferred. On cranial nerve examination, pupils are equal, round and reacting to light, visual velasco are full on confrontation, with no neglect on double simultaneous stimulation. Extraocular muscles are intact with no nystagmus. He appears to have very subtle right facial asymmetry. His tongue protrudes to the midline. Palatal elevation and sensation normal, hearing and shoulder shrug normal, facial sensation normal. On muscle strength testing, there is left pronation, no drift. The muscle strength is normal in arms and legs distally and proximally. Deep tendon reflexes (right/left) biceps 2+/2+, brachioradialis 2+/1+, knees 3/3, ankle 2+/2+, plantar is definitely up on the right and probable up on the left. Sensory to touch is equal with no neglect on double simultaneous stimulation. Cerebellar function showed tremulousness for [id number] testing only on the left side, but there was no ataxia. No ataxia for [id number] testing on either side. Tone and bulk of muscles normal. Gait deferred.. On general examination, there is no carotid bruit or murmur, S1-S2 audible. Chest is clear on consultation. Abdomen is soft nontender. No organomegaly, bowel sounds present. Peripheral pulses are present. No edema. Results - Laboratory Findings CBC and BMP: 08/05/22 05:09 08/05/22 05:09 Abnormal Lab Findings: Abnormal Labs 08/03/22 08/03/22 08/03/22 23:10 23:19 23:19 Sodium 128 L Potassium 2.9 L Chloride 90 L BUN 3 L Creatinine BUN/Creatinine Ratio Glucose 136 H POC Glucose (mg/dL) 154 H Plasma Lactic Acid Mc 2.7 H* 08/04/22 08/05/22 14:37 05:09 Sodium 133 L Potassium Chloride BUN 4 L 3.8 L Creatinine 0.55 L BUN/Creatinine Ratio 6.33 L Glucose 117 H POC Glucose (mg/dL) Plasma Lactic Acid Cm Assessment and Plan Assessment: * Possible TIA manifesting with transient left facial droop and left-sided numbness. * History of CVA, with mild residual left-sided deficits and slight speech hesitancy/expressive dysphasia. * History of brain tumor right frontal region,, status post craniotomy in 2003/2004 * Presence of loop recorder. * Tobacco use * Hypertension Plan: * Patient does not want to stay in the hospital. He declined MRI, as he wants to have it done as an outpatient. * Check carotid Doppler * 2-D echo with bubble study * Fasting a.m. lipid panel, hemoglobin A1c * B12, folate, Tegretol level * Telemetric monitoring. Consider loop recorder interrogation. * Optimize control of blood pressure * Recommend complete tobacco cessation. * Neurology will follow. Thank you for the consult.
[2022-08-06] MEDS: carBAMazepine 200 MG TAB PO SCH (08:58)
[2022-08-06] MEDS: NICOTINE 14MG/24HR PATCH TRANSDERM SCH (08:58)
[2022-08-06] MEDS: TAMSULOSIN 0.4 MG CAP.ER.24H PO SCH (08:58)
[2022-08-06] MEDS: CLOPIDOGREL 75 MG TAB PO SCH (08:58)
[2022-08-06] MEDS: CHOLECALCIFEROL 25 MCG (1000 IU) TABLET PO SCH (08:58)
[2022-08-06] MEDS: MORPHINE SULFATE IR 15 MG TABLET PO PRN (09:00)
--- NOTE | 2022-08-06 09:32 | CA ---
Transthoracic Echo Report Name: Jason Toribio Age: 62 Gender: M : 1960 Exam Date: 08/06/2022 08:05 Exam Location: [facility] Ht (in): 70 Wt (lb): 170 Ordering Physician: Kelley Vieira MD Attending/Referring Phys: Founder And President Ezequiel Murray RDCS Procedure CPT: Indications: stroke vs tia Cardiac Hx: Technical Quality: Fair Contrast 1: Total Dose (mL): Contrast 2: Total Dose (mL): MEASUREMENTS (Male / Female) Normal Values 2D ECHO Ascending Aorta Diameter 3.6 cm M-MODE Aortic Root Diameter MM 3.1 cm AV Cusp Separation MM 1.8 cm DOPPLER AV Peak Velocity 173.2 cm/s AV Peak Gradient 12.0 mmHg LVOT Peak Velocity 85.6 cm/s LVOT Peak Gradient 2.9 mmHg Mitral E Point Velocity 91.9 cm/s Mitral A Point Velocity 101.9 cm/s Mitral E to A Ratio 0.9 MV Deceleration Time 167.1 ms FINDINGS Left Ventricle Left ventricular hypertrophy. Left ventricular ejection fraction is estimated at 55 %. Right Ventricle Normal right ventricular size. Right Atrium Normal right atrial size. Bubble Study was performed, However, difficulty visualizing. Poor bubble study cannot comment on findings Left Atrium Normal left atrial size. Mitral Valve No mitral regurgitation. Aortic Valve Trileaflet aortic valve. Mild aortic regurgitation. No aortic stenosis. Tricuspid Valve Structurally normal tricuspid valve. No tricuspid regurgitation. Pulmonic Valve Structurally normal pulmonic valve. Pericardium No pericardial or pleural effusion. Aorta Mild aortic dilatation at the level of the sinuses of valsalva (root). CONCLUSIONS Normal LV size and systolic function. Bubble study was suboptimal. Mild aortic regurgitation no pericardial effusion Previewed by: Dr. Sylvain Watkins MD (Electronically Signed) Final Date: 06 August 2022 09:31
[2022-08-06 10:46] LABS: Chol/HDL Ratio 3.08 Ratio; LDL Cholesterol,Calculated 92.2 mg/dL (0.0-131.0); VLDL Calculation 13.82 mg/dL (5.00-40.00)
[2022-08-06] MEDS ORDERED: CYANOCOBALAMIN 1,000 MCG/ML 1 ML VIAL IM ONE (12:00)
[2022-08-06] MEDS: SODIUM CHLORIDE 0.9% 1,000 ML IV SCH (12:36)
[2022-08-06 14:24] VITALS: BP 143/91; PULSE 86; TEMP 98
[2022-08-07] MEDS ORDERED: CYANOCOBALAMIN 500 MCG TAB PO SCH (09:00)
--- NOTE | 2022-08-07 16:01 | P.DS ---
Providers Date of admission: 08/04/22 03:00 Attending physician: Bennett Malik Consults: 08/05/22 10:49 Consult Physician Routine Consulting Provider: Kelley Vieira Consult Reason/Comments: vertigo, hx of cva Do you want consulting provider notified?: Yes Primary care physician: Carlo Burk Hospital Course: Final Diagnosis Altered mental status; likely toxic metabolic encephalopathy related to electr olyte imbalance and dehydration resolved Hyponatremia has resolved Lactic acidosis from dehydration resolved Hypertension Hyperlipidemia BPH History of stroke with left sided deficits/foot drop and aphasia History of brain tumor and surgery in 2004 Nicotine dependence 1/2 pack per day smoker Full Code Discharge Disposition Patient is stable for discharge home. He has been recommended for inpatient rehabiliation which patient has refused. He will be discharged home with homecare PT/OT in place. He has been cleared by neurology. Recommending to remain on single antiplatelet therapy with plavix 75 mg daily. He is being discharged on Vitamin B12 daily. Hydrochlorothiazide has been discontinued. Recommend total smoking cessation. Schedule outpatient MRI as recommended by neurology, patient refused MRI while inpatient. Patient refused speech therapy evaluation as well. Hospital Course 62-year-old male with past history of CVA and left-sided deficits to presents emergency department with "I just don't feel well". Family called EMS because they felt the patient wasn't acting himself. He was reporting to room spinning, nausea and diarrhea. He denies headache or visual changes. He does have some disrupted speech and forgetfulness however this is reported to be chronic. He does have foot drop on the left which is chronic. He takes Plavix daily and denies any missed doses. He denies any sick contacts with similar symptoms. He denies fevers, chills or cough. He denies any changes in his urination. History is somewhat abbreviated as the patient is a poor historian and family does not come to the hospital. Evaluation in ED revealed score a 1 on the NIH scale due to mild aphasia. He does have equal plant protection officer strength bilaterally. Is able to hold up both lower extremities for 5 seconds without drift. Initial work up reveals potassium of 2.[address] of his head shows postsurgical changes in the right f rontal lobe without evidence for acute or subacute CVA. Mentation is stable upon saline administration emergency room. Patient is admitted to address electrolyte imbalance. Neurology is also consulted patient does have left facial droop he reports as new. He had carotid doppler done with less than 50% stenosis of bilateral carotid bifurcations. Echocardiogram done showing normal LV size and systolic function with mild MR. Lipid panel showing triglycerides of 69, cholesterol of 157, LDL 92, HDL 51. Sodium, potassium, kidney function stable. Blood count is unremarkable. Cleared for discharge. Recommend close follow up. 08/06/2022 Patient is evaluated today sitting up in bed. Reports improvement in symptoms. He was evaluated by neurology. Cleared for discharge. No chest pain, no shortness of breath. Neuro deficits are stable. He is afebrile, heart rate 86, blood pressure 143/91, 95% room air. Please see medication reconciliation for a list of current medication. Thank you for allowing us to participate in the care of this patient. The impression and plan of care has been dictated by Gabriela Dinh, Nurse Practitioner as directed. Dr. Nicholas MD I have performed a history and physical examination and medical decision making of this patient, discussed the same with the dictator, and agree with the dictators assessment and plan as written, documented as a scribe. Based on total visit time, I have performed more than 50% of this visit. Patient Condition at Discharge: Fair Plan - Discharge Summary Discharge Rx Participant: No New Discharge Prescriptions: New Cyanocobalamin [Vitamin B-12] 1,000 mcg PO DAILY #14 tab Continue Nitroglycerin Sl Tabs [Nitrostat] 0.4 mg SUBLINGUAL Q5M PRN PRN Reason: Chest Pain Tamsulosin [Flomax] 0.8 mg PO DAILY Metoprolol Tartrate [Lopressor] 25 mg PO BID Clopidogrel [Plavix] 75 mg PO DAILY Cholecalciferol [Vitamin D3 (25 Mcg = 1000 Iu)] 50 mcg PO DAILY amLODIPine [Norvasc] 10 mg PO DAILY Morphine Sulfate Ir [MSIR] 30 mg PO TID PRN PRN Reason: Pain Cyclobenzaprine [Flexeril] 5 mg PO BID PRN PRN Reason: Muscle Pain carBAMazepine 200 mg PO Q12H Atorvastatin [Lipitor] 20 mg PO HS Discontinued hydroCHLOROthiazide [Hydrodiuril] 25 mg PO DAILY Discharge Medication List Atorvastatin [Lipitor] 20 mg PO HS 08/04/22 [History] Cholecalciferol [Vitamin D3 (25 Mcg = 1000 Iu)] 50 mcg PO DAILY 08/04/22 [History] Clopidogrel [Plavix] 75 mg PO DAILY 08/04/22 [History] Cyclobenzaprine [Flexeril] 5 mg PO BID PRN 08/04/22 [History] Metoprolol Tartrate [Lopressor] 25 mg PO BID 08/04/22 [History] Morphine Sulfate Ir [MSIR] 30 mg PO TID PRN 08/04/22 [History] Nitroglycerin Sl Tabs [Nitrostat] 0.4 mg SUBLINGUAL Q5M PRN 08/04/22 [History] Tamsulosin [Flomax] 0.8 mg PO DAILY 08/04/22 [History] amLODIPine [Norvasc] 10 mg PO DAILY 08/04/22 [History] carBAMazepine 200 mg PO Q12H 08/04/22 [History] Cyanocobalamin [Vitamin B-12] 1,000 mcg PO DAILY #14 tab 08/06/22 [Rx] Follow up Appointment(s)/Referral(s): Halina Oleary MD [REFERRING] - 1 Week Carlo Burk MD [Primary Care Provider] - 08/13/22 9:40 am Ambulatory/Diagnostic Orders: Basic Metabolic Panel [LAB.AMB] Time Frame: 3 Days, Location: None Selected Patient Instructions/Handouts: Dehydration (DC), Vertigo (DC) Activity/Diet/Wound Care/Special Instructions: Continue on plavix 75 mg daily Recommend total smoking cessation. Follow up with your hazardous waste management specialist in 1 week Home with homecare and physical therapy services Scheduled outpatient MRI as recommended by neurology Declined home care choices at discharge. If home care is wanted after discharge, please call primary care provider who can also order home care services. Discharge Disposition: HOME WITH HOME HEALTH SERVICES
== END 2022-08-06 16:09 | disposition home health service (06) ==
LOC: EC 23:04 → 6NMEDSUR 08-04 03:00
PROVIDERS: ADMIT Hospitalist; ATTEND Hospitalist
DX: R41.82 Altered mental status, unspecified (principal); E87.1 Hypo-osmolality and hyponatremia; E86.0 Dehydration; E87.20 Acidosis, unspecified; I10 Essential (primary) hypertension; E78.5 Hyperlipidemia, unspecified; N40.0 Benign prostatic hyperplasia without lower urinary tract symptoms; I69.320 Aphasia following cerebral infarction; I69.392 Facial weakness following cerebral infarction; Z85.841 Personal history of malignant neoplasm of brain; Z71.6 Tobacco abuse counseling; F17.210 Nicotine dependence, cigarettes, uncomplicated; Z79.899 Other long term (current) drug therapy; Z95.818 Presence of other cardiac implants and grafts; Z87.01 Personal history of pneumonia (recurrent); Z90.49 Acquired absence of other specified parts of digestive tract; Z98.890 Other specified postprocedural states; Z79.02 Long term (current) use of antithrombotics/antiplatelets
CPT/HCPCS: 96361 ×3; 96372; 96365; 96366; 96375; 99285; 36415; 93005; 93306; 97163; 97166; 80156; 80061; 80053; 80048 ×2; 82607; 82746; 83605 ×2; 84484 ×2; 85025 ×2; 85610; 81003; 83036; 71046; 93880; 70450; G0378 ×3; S4990 ×3; J3420; J3480; J2405